=== PATIENT | male | born 1985 | race Caucasian/White ===

== ENCOUNTER 2020-10-19 19:00 | Emergency (ER) | payer SELFPAY ==
[~2020-10-19] VITALS: Ht 175.3 cm; Wt 65.9 kg
[2020-10-19 19:26] VITALS: BP 120/64
--- NOTE | 2020-10-19 19:28 | NUR ---
pt here for medical clearance only and he has no c/o pain and no c/o stated injuries.
== END 2020-10-19 19:32 ==
LOC: ER 19:02
DX: Z02.89 Encounter for other administrative examinations (principal); V87.7XXA Person injured in collision between other specified motor vehicles (traffic), initial encounter; Y93.89 Activity, other specified; Y92.89 Other specified places as the place of occurrence of the external cause; Y99.8 Other external cause status
CPT/HCPCS: 99283

== ENCOUNTER 2021-04-22 17:44 | Emergency (ER) | payer MEDICAID ==
[~2021-04-22] VITALS: Ht 180.3 cm; Wt 88.6 kg
[2021-04-22 18:21] VITALS: BP 140/109
== END 2021-04-22 18:32 ==
LOC: ER 17:45
DX: Z04.1 Encounter for examination and observation following transport accident (principal); S13.4XXA Sprain of ligaments of cervical spine, initial encounter; Z72.89 Other problems related to lifestyle; V87.7XXA Person injured in collision between other specified motor vehicles (traffic), initial encounter; Y93.89 Activity, other specified; Y92.89 Other specified places as the place of occurrence of the external cause; Y99.8 Other external cause status
CPT/HCPCS: 99283

== ENCOUNTER 2023-02-02 08:28 | Emergency (ER) | payer MEDICAID, OTHER ==
[~2023-02-02] VITALS: Ht 180.3 cm; Wt 61.3 kg
[2023-02-02 08:32] VITALS: TEMP 98.1
[2023-02-02 13:12] VITALS: BP 133/99; PULSE 77; RESP 17; O2SAT 99
--- NOTE | 2023-02-02 13:31 | NUR ---
I AGREE WITH FIRE COORDINATOR'S GENERAL ASSESSMENT. PT IN STABLE CONDITION.
== END 2023-02-02 13:37 | disposition home or self-care (01) ==
LOC: ER 08:28
DX: M54.50 Low back pain, unspecified (principal); Z72.89 Other problems related to lifestyle
CPT/HCPCS: 72100; 99283